=== PATIENT | male | born 1975 | race Caucasian/White ===

== ENCOUNTER 2021-11-13 09:26 | Emergency (ER) | payer OTHER, SELFPAY ==
[2021-11-13 09:35] VITALS: BP 133/88; PULSE 99; RESP 16; TEMP 36.3; O2SAT 96
[2021-11-13 09:37] VITALS: BP 133/88; PULSE 99; RESP 16; TEMP 36.3; O2SAT 96
--- NOTE | 2021-11-13 09:45 | ED.GENADULT ---
HPI - General Adult General Chief complaint: Skin/Abscess/Foreign Body Stated complaint: Swollen area near genitals Time Seen by Provider: 11/13/21 09:55 Source: patient, RN notes reviewed and old records reviewed Mode of arrival: ambulatory Limitations: no limitations History of Present Illness HPI narrative: 46-year-old male who presents to [facility] care with complaints of swollen area under scrotum for the past week with difficulty stated when sitting.Patient reports that he noted some drainage from are on Sunday but area has increased in size again and is painful red and swollen., measures 4cm X 3cm and is fluctuant. Patient reports that he is diabetic but has not taken any medications since early 2019. Blood sugar per finger stick is 276.Patient reports that he had COVD in February of 2020 and has since been COVID vaccinated with Booster, no flu shot taken. Patient denies any fevers, chills or sweats. MD complaint: abscess scrotal area Onset (ago): week(s) (1) Location: pelvis (scrotum) Radiation: non-radiation Severity scale (1-10): 8 Treatments prior to arrival: none Related Data Allergies Allergy/AdvReac Type Severity Reaction Status Date / Time hydrocodone Allergy Itching Verified 11/13/21 10:21 Review of Systems Review of Systems: CONSTITUTIONAL: Denies fever, chills, or sweats. EYES: Denies visual changes, redness, or discharge. ENT: Denies rhinorrhea, congestion, sore throat, or otalgia. CARDIOVASCULAR: Denies chest pain, palpitations, or edema. RESPIRATORY: Denies cough or dyspnea. GASTROINTESTINAL: Denies abdominal pain, nausea, vomiting, or diarrhea. GENITOURINARY: Denies dysuria or hematuria, painful swollen scrotum tissue with no pain to testicles. SKIN: Denies rash or itching, positive abscess in scrotal region between testicle and anal region MUSCULOSKELETAL: Denies back pain, joint pain, or myalgia. NEUROLOGIC: Denies headache, numbness, or weakness. PSYCHIATRIC: Denies anxiety or depression. All systems reviewed & are unremarkable except as noted in HPI and below PMFSH Past Medical History Medical History (Updated 11/14/21 @ 17:22 by Sherrie Spencer NP) COVID-13 March 2020 Diabetes patient is not currently taking medication Surgical History Surgical History (Updated 11/14/21 @ 17:23 by Sherrie Spencer NP) H/O ventral hernia repair Social History Social History (Updated 11/14/21 @ 17:25 by Sherrie Spencer NP) Smoking packs per day: 1 Smoking cigarettes per day: 20.0 Years smoked: 25 Smoking pack-years: 25.00 Smoking status: Current every day smoker Alcohol intake: current Alcohol use details: social rare Substance use type: does not use Living arrangements: with family Gender identity (if verbalized by the patient): Male Comments At time of signature, agree with nursing past medical, surgical, social and family history. There is no relevant family history pertinent to the presenting complaint Exam Narrative: GENERAL: Well-appearing, well-nourished, and in some acute distress related to discomfort. HEAD: Normocephalic, atraumatic. EYES: PERRLA and EOMI. ENT: Nares clear, no rhinorrhea or epistaxis. Mucous membranes moist.TM's normal with good light reflex, throat pink with no lesions or exudates NECK: Supple.no lymphadenopathy CHEST: Clear to auscultation. No respiratory distress.SAO2 96% on room air HEART: Regular rate and rhythm. No murmur heard. Normal peripheral pulses. ABDOMEN: Soft, nontender, nondistended, normal active bowel sounds.Denies any nausea or vomiting or any episodes of diarrhea. EXTREMITIES: Normal range of motion. No edema. SKIN: Warm, dry, no rash.Positive for abscess to scrotal area between testicles and anal region with fluctuant tissue measures 4cm X 3 cm, redness and painful to palpation, no present drainage from site. NEURO: No focal deficits. Alert and oriented x3. Course Course Level of Care: Express Care Visit Vital Signs V
[2021-11-13 09:51] LABS: Glucose Point of Care 276 mg/dl (65-105)
== END 2021-11-13 10:32 | disposition home or self-care (01) ==
PROVIDERS: Emergency Provider Registered Nurse
DX: N49.2 Inflammatory disorders of scrotum (principal); E11.9 Type 2 diabetes mellitus without complications; Z91.14 Patient's other noncompliance with medication regimen; Z86.16 Personal history of COVID-19
CPT/HCPCS: 55100; 82948; 87070; 87075; 87076; 87147; 87185; 87205; 99213; A9270; G0463

== ENCOUNTER 2022-07-15 07:03 | Emergency (ER) | payer OTHER, SELFPAY ==
[2022-07-15 06:58] VITALS: PULSE 0; RESP 0
--- NOTE | 2022-07-15 07:03 | PC.NURSE ---
Addendum entered by Twila Min RN 07/15/22 07:46: PER EMS SHOCK WAS DELIVERED FOR PEA APPROXIMATELY AROUND 0650 Original Note: Once arrival to ED pt had ET tube placed in field. Rakesh machine delivering CPR 0703 (EPI) 0704- pulse check- no pulse. CPR resumed 0705 ERP verifying tube placement using glidoscope 0706 Epi (2nd) 0706 Pulse check- no pulse asystole on monitor. CPR resumed 0709 EPI (3rd) 0709 1 amp of bicarb 0712 pulse check (2 monitors used as well as doppler) no pulse- asystole 0713 BS check 504 0714 Epi (4th) 0714 Pulse check PEA on monitor no pulse present CPR resumed 0717 Pulse check. PEA on monitor no pulse present 0717 TOD called by KELLY Fowler Shock 15 minutes from arrival 0650. Staff present during cardiac arrest Malcolm OQUENDO, [place] RN, Marilynn Morrison RN
--- NOTE | 2022-07-15 07:23 | ED.CPR ---
HPI - CPR General Chief Complaint: Cardiac Arrest/CPR Stated Complaint: cardiac arrest Time Seen by Provider: 07/15/22 07:21 History of Present Illness HPI narrative: Patient is a 46-year-old male who presents to the ER in cardiac arrest. Patient was at his home when his daughters heard a shout and heard him fall to the ground. They found him unresponsive. They called EMS. When EMS arrived the patient had no pulse. They started CPR and intubated the patient. Initial call came at 0626. Patient did have 1 run of V-fib for which she received a shock and then a dose of amiodarone. Patient then went into PEA. Patient has history of diabetes, it is unknown if it was being treated. No recent surgeries according to history obtained by EMS. Related Data Allergies Allergy/AdvReac Type Severity Reaction Status Date / Time hydrocodone Allergy Itching Verified 11/13/21 10:21 Review of Systems Review of Systems: ROS unobtainable: Yes unobtainable due to medical condition PMFSH Past Medical History Medical History (Updated 07/15/22 @ 13:39 by Arthur Fowler MD) COVID-13 March 2020 Diabetes patient is not currently taking medication Surgical History Surgical History (Updated 11/14/21 @ 17:23 by Sherrie Spencer NP) H/O ventral hernia repair Social History Social History (Updated 11/14/21 @ 17:25 by Sherrie Spencer NP) Smoking packs per day: 1 Smoking cigarettes per day: 20.0 Years smoked: 25 Smoking pack-years: 25.00 Smoking status: Current every day smoker Alcohol intake: current Alcohol use details: social rare Substance use type: does not use Living arrangements: with family Gender identity (if verbalized by the patient): Male Exam Narrative: GENERAL: Unresponsive, obese HEAD: Normocephalic, atraumatic. EYES: Pupils fixed and mid dilated. ENT: Mucous membranes moist. CHEST: No spontaneous respirations. Respirations only heard with bagging. HEART: No pulse without CPR. ABDOMEN: Soft, nondistended. EXTREMITIES: No deformity of upper or lower extremities. SKIN: Cool, mottled, no rash. NEURO: GCS 3 Course Course Emergency Course: Upon arrival to the ER patient was transferred to our bed and hooked up to our monitors. CPR was continued. Patient received multiple rounds of epinephrine as well as 1 dose of sodium bicarbonate. Patient's Accu-Chek was 503. ET tube checked to ensure adequate position within the trachea using a glide scope. It was in the proper position. Patient was in asystole x2. He was in PEA x2. Time of was called at 0717. 0740: Patient's sister arrived to the ER. I have informed her of the patient's condition and the events leading up to his time of . Patient's is unavailable as she is working on a locomotive. 0820: Patients step daughter at bedside. Discussed what occurred this morning and offered condolences. The storage administrator will release the patient to the morgue. Vital Signs Vital signs: Vital Signs Pulse Rate 0 L 07/15/22 06:58 Respiratory Rate 0 L 07/15/22 06:58 Pulse Rate 0 L 07/15/22 06:58 Respiratory Rate 0 L 07/15/22 06:58 MDM - Cardiac Arrest/CPR Lab Data Labs: Lab Results 07/15/22 Range/Units 07:14 POC Capillary Glucose > 500 H* (65-105) mg/dl Discharge Plan Discharge Clinical Impression: Cardiopulmonary arrest Patient Disposition: Condition: Prescriptions: No Action clindamycin HCl 300 mg capsule 300 mg PO Q8H Qty: 30 0RF Follow-up/Referrals: UNKNOWN,DOCTOR [Primary Care Provider] -
--- NOTE | 2022-07-15 07:37 | PC.NURSE ---
Glass Or Mirror Inspector called at 07 Julissa will be here MTS called at 0730, possible tissue donor, asked to call when the sister arrives
[2022-07-15 08:42] LABS: Glucose Point of Care > 500 mg/dl (65-105)
== END 2022-07-15 09:21 | disposition expired ==
PROVIDERS: Emergency Provider Emergency Medicine
DX: I46.9 Cardiac arrest, cause unspecified (principal); E11.9 Type 2 diabetes mellitus without complications; Z86.16 Personal history of COVID-19; F17.210 Nicotine dependence, cigarettes, uncomplicated
CPT/HCPCS: 82948; 92950; 99285; J0171